=== PATIENT | female | born 1995 | race Caucasian/White ===

== ENCOUNTER → 2021-02-12 | Outpatient (CLI) | payer BC ==
[2021-02-12 16:51] LABS: Basophils # (A) 0.05 X 10*3/uL (0.00-0.10); Basophils % (A) 0.7 %; Eosinophils # (A) 0.14 X 10*3/uL (0.04-0.35); Eosinophils % (A) 1.9 %; HCT 38.1 % (37.2-46.3); HGB 12.1 g/dL (12.0-15.0); Lymphocytes # (A) 2.41 X 10*3/uL (0.90-5.00); Lymphocytes % (A) 32.9 %; MCH 27.8 pg (27.0-32.0); MCHC 31.8 g/dL (32.0-37.0); MCV 87.6 fL (80.0-97.0); Mean Platelet Volume 10.4 fL (9.5-12.2); Monocytes # (A) 0.84 X 10*3/uL (0.20-1.00); Monocytes % (A) 11.5 %; Neutrophils # (A) 3.87 X 10*3/uL (1.80-7.70); Neutrophils % (A) 52.7 %; Platelet Count 390 X 10*3/uL (140-440); RBC 4.35 X 10*6/uL (4.10-5.20); RDW 14.2 % (11.5-14.5); WBC 7.33 X 10*3/uL (4.50-10.00)
[2021-02-12 19:43] LABS: Chol/HDL Ratio 4.25; Cholesterol 187 mg/dL (0-200); Glucose 86 mg/dL (70-110)
[2021-02-12 19:52] LABS: Follicle Stimulating Hormone 11.4 mIU/mL; Luteinizing Hormone 18.5 mIU/mL
[2021-02-12 20:13] LABS: HCG,Quantitative Serum <2.0 mIU/mL
== END | disposition home or self-care (01) ==
LOC: LABWHC1 10:59
PROVIDERS: ATTEND Obstetrics & Gynecology
DX: Z33.1 Pregnant state, incidental (principal); N91.2 Amenorrhea, unspecified; E34.9 Endocrine disorder, unspecified; D50.0 Iron deficiency anemia secondary to blood loss (chronic); Z3A.00 Weeks of gestation of pregnancy not specified
CPT/HCPCS: 36415; 80061; 82306; 82947; 83001; 83002; 84146; 84439; 84443; 84702; 85025

== ENCOUNTER → 2021-10-23 | Outpatient (CLI) | payer BC ==
[2021-10-23 16:15] LABS: Basophils # (A) 0.06 X 10*3/uL (0.00-0.10); Basophils % (A) 0.7 %; Eosinophils # (A) 0.13 X 10*3/uL (0.04-0.35); Eosinophils % (A) 1.6 %; HCT 40.9 % (37.2-46.3); HGB 12.8 g/dL (12.0-15.0); Immature Grans, Automated 0.2 %; Lymphocytes # (A) 3.14 X 10*3/uL (0.90-5.00); Lymphocytes % (A) 38.4 %; MCH 26.9 pg (27.0-32.0); MCHC 31.3 g/dL (32.0-37.0); MCV 86.1 fL (80.0-97.0); Mean Platelet Volume 10.1 fL (9.5-12.2); Monocytes # (A) 0.67 X 10*3/uL (0.20-1.00); Monocytes % (A) 8.2 %; NRBC Per 100 WBC 0 /100 WBCS (0.0-0.0); Neutrophils # (A) 4.15 X 10*3/uL (1.80-7.70); Neutrophils % (A) 50.9 %; Platelet Count 421 X 10*3/uL (140-440); RBC 4.75 X 10*6/uL (4.10-5.20); RDW 14.4 % (11.5-14.5); WBC 8.17 X 10*3/uL (4.50-10.00)
[2021-10-23 16:34] LABS: % Iron Saturation 10.66 (12.00-45.00); African American GFR (CKD) 103.9 (60.0-200.0); Albumin 5.1 g/dL (3.8-4.9); Albumin/Globulin Ratio 1.96 (1.60-3.17); Anion Gap 12.5 mmol/L (10.00-18.00); BUN/Creat Ratio 10.1 Ratio (12.00-20.00); Blood Urea Nitrogen 8.9 mg/dL (9.0-27.0); Calcium 10.1 mg/dL (8.7-10.3); Carbon Dioxide 24.4 mmol/L (20.0-27.5); Ferritin 18.6 ng/mL (10.0-291.0); Globulin 2.6 g/dL (1.6-3.3); Non-African American GFR(CKD) 89.7 (60.0-200.0); Potassium 5.2 mmol/L (3.5-5.5); Total Bilirubin 0.4 mg/dL (0.30-1.20); Total Protein 7.7 g/dL (6.2-8.2)
[2021-10-23 19:11] LABS: C-Peptide 3.33 ng/mL (0.81-3.85)
== END | disposition home or self-care (01) ==
LOC: LABWHC1 08:49
PROVIDERS: ATTEND Internal Medicine
DX: J45.990 Exercise induced bronchospasm (principal); E28.2 Polycystic ovarian syndrome; R20.2 Paresthesia of skin
CPT/HCPCS: 36415; 80053; 82607; 82728; 83036; 83525; 83540; 83550; 84206; 84681; 85025

== ENCOUNTER → 2022-06-04 | Outpatient (CLI) | payer BC ==
[2022-06-04 22:47] LABS: African American GFR (CKD) 136.7 (60.0-200.0); Albumin 4.7 g/dL (3.8-4.9); Albumin/Globulin Ratio 1.96 (1.60-3.17); Anion Gap 13.3 mmol/L (10.00-18.00); BUN/Creat Ratio 11.57 Ratio (12.00-20.00); Blood Urea Nitrogen 8.1 mg/dL (9.0-27.0); Calcium 9.8 mg/dL (8.7-10.3); Carbon Dioxide 22.7 mmol/L (20.0-27.5); Globulin 2.4 g/dL (1.6-3.3); Non-African American GFR(CKD) 117.9 (60.0-200.0); Testosterone 24.9 ng/mL (9.01-47.94); Total Bilirubin 0.2 mg/dL (0.30-1.20); Total Protein 7.1 g/dL (6.2-8.2)
== END | disposition home or self-care (01) ==
LOC: LABWHC1 10:07
PROVIDERS: ATTEND Internal Medicine Endocrinology, Diabetes & Metabolism
DX: E28.2 Polycystic ovarian syndrome (principal)
CPT/HCPCS: 36415; 80053; 82626; 83498; 83525; 84403; 84443

== ENCOUNTER → 2022-09-22 | Outpatient (CLI) | payer BC ==
--- NOTE | 2022-09-22 17:15 | MR ---
MRI CERVICAL SPINE: CLINICAL HISTORY: Headaches with Neck tightness, sharp pain in upper left arm for 1 to 2 years. Cervi lisa radiculopathy per order. TECHNIQUE: Multiplanar, multisequence imaging of the cervical spine is performed without IV contrast. COMPARISON: None. FINDINGS: Sagittal images of the cervical spine show the craniocervical junction to appear within nor mal limits. The cervical and upper thoracic spinal cord is normal in course, caliber, and signal. V ertebral alignment is anatomic. The vertebral body and intravertebral disk heights are normal. The bone marrow signal intensity is within normal limits. Axial images show C2-C3 through the C4-C5 levels to appear within normal limits. Axial images at C5-C6 levels from broad-based 11 mm left paracentral disc protrusion effacing the ant erolateral thecal sac, patent bilateral neural foramina. Findings seen best on axial image 28 where i t extends to the ventral surface of spinal cord which is slightly flattened on axial images but not a s prominent on sagittal images. Axial images at C6-C7 and C7-T1 levels appear within normal limits. IMPRESSION: Eccentric disc herniation C5-C6 level.
== END | disposition home or self-care (01) ==
LOC: RADMRIMAIN 16:05
PROVIDERS: ATTEND Physician Assistant Medical
DX: M50.122 Cervical disc disorder at C5-C6 level with radiculopathy (principal)
CPT/HCPCS: 72141

== ENCOUNTER → 2022-10-01 | Outpatient (CLI) | payer BC ==
[2022-10-01 23:56] LABS: Basophils # (A) 0.05 X 10*3/uL (0.00-0.10); Basophils % (A) 0.7 %; Eosinophils # (A) 0.12 X 10*3/uL (0.04-0.35); Eosinophils % (A) 1.6 %; HCT 40.4 % (37.2-46.3); HGB 12.9 g/dL (12.0-15.0); Immature Grans, Automated 0.3 %; Lymphocytes # (A) 2.96 X 10*3/uL (0.90-5.00); Lymphocytes % (A) 39.3 %; MCH 28.2 pg (27.0-32.0); MCHC 31.9 g/dL (32.0-37.0); MCV 88.4 fL (80.0-97.0); Mean Platelet Volume 9.7 fL (9.5-12.2); NRBC Per 100 WBC 0 /100 WBCS (0.0-0.0); Neutrophils # (A) 3.79 X 10*3/uL (1.80-7.70); Neutrophils % (A) 50.1 %; Platelet Count 421 X 10*3/uL (140-440); RBC 4.57 X 10*6/uL (4.10-5.20); RDW 13.6 % (11.5-14.5); WBC 7.54 X 10*3/uL (4.50-10.00)
[2022-10-02 08:20] LABS: % Iron Saturation 13.31 (12.00-45.00); ALT 21 U/L (8-44); AST 16 U/L (13-35); African American GFR (CKD) 108.2 (60.0-200.0); Albumin 4.6 g/dL (3.8-4.9); Albumin/Globulin Ratio 1.81 (1.60-3.17); Alkaline Phosphatase 79 U/L (41-126); BUN/Creat Ratio 12.37 Ratio (12.00-20.00); Blood Urea Nitrogen 10.5 mg/dL (9.0-27.0); Calcium 9.6 mg/dL (8.7-10.3); Carbon Dioxide 20.1 mmol/L (20.0-27.5); Chloride 103 mmol/L (96-109); Chol/HDL Ratio 5.24 Ratio; Globulin 2.5 g/dL (1.6-3.3); Glucose 75 mg/dL (70-110); Iron 63 ug/dL (50-170); LDL Cholesterol,Calculated 102.4 mg/dL (0.0-131.0); Non-African American GFR(CKD) 93.4 (60.0-200.0); Potassium 4.9 mmol/L (3.5-5.5); Sodium 138 mmol/L (135-145); Total Iron Binding Capacity 473 ug/dL (228-460); Total Protein 7.2 g/dL (6.2-8.2)
== END ==
LOC: LABWHC1 10:41
PROVIDERS: ATTEND Physician Assistant Medical
DX: Z00.00 Encounter for general adult medical examination without abnormal findings (principal); Z13.220 Encounter for screening for lipoid disorders; Z13.1 Encounter for screening for diabetes mellitus; R53.83 Other fatigue
CPT/HCPCS: 36415; 80053; 80061; 82306; 82728; 83036; 83540; 83550; 84443; 85025

== ENCOUNTER → 2022-10-12 | Outpatient (CLI) | payer BC | LOC: CPPFTMAIN 15:04 | PROVIDERS: ATTEND Family Medicine | DX: Z73.89 Other problems related to life management difficulty (principal) | CPT/HCPCS: 94060; 94726; 94729 ==

== ENCOUNTER → 2022-11-03 | Outpatient (CLI) | payer BC ==
--- NOTE | 2022-11-03 13:03 | CA ---
Exercise Stress Test Report Name: Jordyn Cartwright Exam Date: 11/03/2022 10:34 Exam Location: [place] Stress Ht (in): 70 Wt (lb): 245 BSA: 2.28 Ordering Phys: Jacques Garza MD Referring Phys: Deedee Black PAC Technologist: Richard Tran Age: 27 Gender: F : 1995 Procedure CPT: Indications: Z73.89 activity intolerance ICD-10 Codes: Patient History: Chest pain Medications: Meds past 24 hrs: Pretest Chest Pain: STRESS TEST David Protocol Exercise Duration (min:sec): 09:[address] Depressions (mm): Angina Score: Nichols Score: Resting HR (bpm): 83 Peak HR (bpm): 190 Resting BP (mmHg): 118 / 88 Peak BP (mmHg): 184 / 104 MPHR: 192 Target HR: 163 % MPHR: 99 METS: 10.3 Total Dose: Peak Dose: Atropine: Double Product: 12646 BP Response: Stress Termination: Dyspnea Maximum heart rate obtained Stress Symptoms: DIFFICULTY IN BREATHING Stress Summary: ECG ANALYSIS Resting ECG: Stress ECG: CONCLUSIONS Baseline EKG revealed a normal sinus rhythm without significant ST-T changes. Patient walked on a standard David protocol for 9 minutes and achieved a maximum heart rate of 178 bpm which is available 85% of predicted maximal. She developed shortness of breath and fatigue and became emotional towards the end and also had some. Ice. However she did not have angina. Resting blood pressure was 180/88 peak blood pressure was 184/104. There was no arrhythmia. There was no angina. There were no ST segment changes to indicate ischemia. This is a negative stress test with fair exercise capacity without evidence of ischemia Dr. Triston Muñiz MD (Electronically Signed) Final Date: 03 Nov 2022 13:02
--- NOTE | 2022-11-03 15:39 | US ---
EXAMINATION TYPE: US thyroid st tissue head/neck DATE OF EXAM: 11/03/2022 COMPARISON: NONE CLINICAL INDICATION: Female, 27 years old with history of E04.1, Z73.89; thyroid nodule GLAND SIZE: Right Lobe: 5.4 x 1.7 x 2.5 cm Overall Parenchyma: homogenous Left Lobe: 5.6 x 1.6 x 1.9 cm Overall Parenchyma: homogeneous Isthmus Thickness: 0.3 cm NODULES RIGHT: # of nodules measured on right: 1 -multiple colloid cysts, largest measured 1. 1.0 X 0.5 x 0.7 cm, lower , colloid cyst. Prior size: no prior LEFT: # of nodules measured on left: 1 - multiple colloid cysts, largest measured 1. 0.8 X 0.4 x 0.7 cm, upper , colloid cyst. Prior size: no prior ISTHMUS: # of nodules measured in the isthmus: 0 Bilateral neck scanned, no evidence of lymphadenopathy. 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 No suspicious solid nodule seen.
== END | disposition home or self-care (01) ==
LOC: RADUSWWP 09:39
PROVIDERS: ATTEND Family Medicine
DX: E04.2 Nontoxic multinodular goiter (principal); E04.9 Nontoxic goiter, unspecified; Z73.89 Other problems related to life management difficulty
CPT/HCPCS: 76536; 93017